=== PATIENT | female | born 1975 | race Caucasian/White ===

== ENCOUNTER → 2016-04-04 | Emergency (ER) | payer OTHER ==
[~2016-04-04] VITALS: Ht 157.5 cm; Wt 81.0 kg
[~2016-04-04] MED LIST: FIORICET PO; KETOROLAC 30 MG INJ IM STA
[2016-04-04 22:32] VITALS: Ht 157.5 cm; Wt 81.0 kg
--- NOTE | 2016-04-05 01:10 | ERD ---
ER Documentation Chief Complaint Date/Time DATE: 04/05/16 TIME: 01:05 Chief Complaint headache x 3 months HPI Patient is a 40-year-old female with a past medical history of GERD who presents to the emergency department with a headache 3 months. Patient denies sudden onset. Patient states that she has a history of headaches. Patient states today her headache was worse. She states that her pain today was a 10 out of 10 this morning. After taking Excedrin two hours ago, her current headache is a 1 out of 10. Patient describes the pain to be "pulsating." Patient states that the pain is primarily in the occipital region and radiates down into her bilateral shoulders. Patient reported some nausea however denies any vomiting. Patient reports phonophobia but denies any photophobia. Denies any fever, chills, neck stiffness, back pain, chest pain or shortness of breath , abdominal pain, loss of consciousness. Patient denies any difficulty ambulating. ROS All systems reviewed and are negative except as per history of present illness. Medications Home Meds Active Scripts Acetamin/Butalbital/Caffeine* (Fioricet*) [id number] Tab, 1 TAB PO Q6H Y for PAIN, #15 TAB Prov:RADHA BURCH PA-C 04/05/16 Allergies Allergies: Coded Allergies: No Known Allergy (Unverified , 04/04/16) PMhx/Soc Medical and Surgical Hx: pt denies Medical Hx, pt denies Surgical Hx History of Surgery: Yes (C section) Anesthesia Reaction: No Hx Neurological Disorder: No Hx Respiratory Disorders: No Hx Cardiac Disorders: No Hx Psychiatric Problems: No Hx Miscellaneous Medical Probl: Yes (H pylori) Hx Alcohol Use: No Hx Substance Use: No Hx Tobacco Use: No Smoking Status: Never smoker Physical Exam Vitals Vital Signs Date Time Temp Pulse Resp B/P Pulse Ox O2 Delivery O2 Flow Rate FiO2 04/04/16 22:32 98.3 86 20 124/73 99 Physical Exam GENERAL: Well-developed, well-nourished female. Appears in no acute distress. Speaking in full sentences HEAD: Normocephalic, atraumatic. No deformities or ecchymosis. EYE: Pupils equal, round, and reactive to light. EOMs intact. No conjunctival erythema. No scleral icterus. No eye discharge. ENT: External ear without any masses or tenderness. Auditory canals clear bilaterally. TM visualized bilaterally, non-erythematous, non-bulging. Nasal mucosa pink with no discharge. Oropharynx is pink without any tonsillar erythema or exudates. No uvula deviation. No kissing tonsils. NECK: Supple. No lymphadenopathy or thyromegaly. No meningismus. Full range of motion of the neck. LUNG: Clear to auscultation bilaterally. No rhonchi, wheezing, rales or coarse breath sounds. HEART: Regular rate and rhythm. No murmurs, rubs or gallops. BACK: No midline tenderness. Tender to palpation of bilateral trapezius muscles. EXTREMITIES: Equal pulses bilaterally. No peripheral clubbing, cyanosis or edema. No unilateral leg swelling. NEUROLOGIC: Alert and oriented x3, cooperative. Mood and affect appropriate to situation. Cranial nerves II through XII are grossly intact. Normal speech. Motor exam: 5/5 strength in upper and lower extremities. Sensory exam: Sensation intact to light touch on all four extremities. Cerebellar function exam: No dysmetria on otkgwj-nk-nive test. Steady gait. No pronator drift. SKIN: Normal color. Warm and dry. No rashes or lesions. Results 24 hrs Current Medications Medications (Trade) Dose Ordered Sig/Ru Route PRN Reason Start Time Stop Time Status Last Admin Dose Admin Ketorolac Tromethamine (Toradol) 30 mg ONCE STAT IM 04/05/16 01:03 04/05/16 01:04 DC 04/05/16 01:13 Procedures/MDM ED COURSE: The patient was stable throughout ED course. I kept the patient and/or family informed of laboratory and diagnostic imaging results throughout the ED course. MEDICATIONS GIVEN: Toradol IM Patient tolerated medication well with no adverse reactions. Patient reported improvement in pain. MEDICAL DECISION MAKING: This is a 40-year-old female who presents with a headache 3 months. Patient reports nausea, phonophobia with headaches. Vital signs were reviewed. Patient was afebrile. Patient is not hypoxic. Patient stated that current headache was similar to headaches in the past. Patient denied any fevers, neck stiffness, visual changes or LOC. Full neurological exam was normal. Patient was given Toradol here in the ED, which did improve the pain. Given these findings, the patients presentation is most consistent with migraine vs tension headaches. I have a much lower clinical concern for intracranial hemorrhage, CVA, meningitis , encephalitis, temporal arteritis, benign intracranial hypertension, intracranial mass, glaucoma, preeclampsia, sinusitis. PRESCRIPTIONS: Fioricet DISCHARGE: At this time, patient is stable for discharge and outpatient management. I have encouraged the patient to hydrate well. I have instructed the patient to follow- up with his/her primary care physician in 1-2 days. If symptoms persist, patient may need to see a specialist for further examinations and testing. I have instructed the patient to promptly return to the ER at any time for any new or worsening symptoms including increased increased pain, fever, nausea, vomiting, numbness, neck stiffness, visual changes, weakness or LOC. The patient and/or family expressed understanding of and agreement with this plan. All questions were answered. Home care instructions were provided. Departure Diagnosis: Primary Impression: Headache Headache type: unspecified Headache chronicity pattern: chronic headache Intractability: not intractable Qualified Code: R51 - Chronic nonintractable headache, unspecified headache type Condition: Stable Patient Instructions: Self-Care for Headaches Referrals: [facility] YOU HAVE RECEIVED A MEDICAL SCREENING EXAM AND THE RESULTS INDICATE THAT YOU DO NOT HAVE A CONDITION THAT REQUIRES URGENT TREATMENT IN THE EMERGENCY DEPARTMENT. FURTHER EVALUATION AND TREATMENT OF YOUR CONDITION CAN WAIT UNTIL YOU ARE SEEN IN YOUR DOCTORS OFFICE WITHIN THE NEXT 1-2 DAYS. IT IS YOUR RESPONSIBILITY TO MAKE AN APPOINTMENT FOR FOLOW-UP CARE. IF YOU HAVE A PRIMARY DOCTOR --you should call your primary doctor and schedule an appointment IF YOU DO NOT HAVE A PRIMARY DOCTOR YOU CAN CALL OUR PHYSICIAN REFERRAL HOTLINE AT IF YOU CAN NOT AFFORD TO SEE A PHYSICIAN YOU CAN CHOSE FROM THE FOLLOWING [facility] CLINICS [facility] [address] [facility] [address] [facility]. [facility] [address] [facility] [address] [facility] [address] [facility]. [facility]. [address] [facility]. [facility] YOU HAVE RECEIVED A MEDICAL SCREENING EXAM AND THE RESULTS INDICATE THAT YOU DO NOT HAVE A CONDITION THAT REQUIRES URGENT TREATMENT IN THE EMERGENCY DEPARTMENT. FURTHER EVALUATION AND TREATMENT OF YOUR CONDITION CAN WAIT UNTIL YOU ARE SEEN IN YOUR DOCTORS OFFICE WITHIN THE NEXT 1-2 DAYS. IT IS YOUR RESPONSIBILITY TO MAKE AN APPOINTMENT FOR FOLOW-UP CARE. IF YOU HAVE A PRIMARY DOCTOR --you should call your primary doctor and schedule and appointment IF YOU DO NOT HAVE A PRIMARY DOCTOR YOU CAN CALL OUR PHYSICIAN REFERRAL HOTLINE AT . IF YOU CAN NOT AFFORD TO SEE A PHYSICIAN YOU CAN CHOSE FROM THE FOLLOWING [facility] INSTITUTIONS: [facility] [address] [place] [address] [facility] [address] [place] [address] [facility] [address] [place] [address] [facility] URGENT CARE/SPECIALTIES Additional Instructions: Hydrated. Rest. Take medication as needed for headaches. Call your primary care doctor TOMORROW for an appointment during the next 1-2 days.See the doctor sooner or return here if your condition worsens before your appointment time. RADHA BURCH PA-C Apr 05, 2016 01:10
== END | disposition home or self-care (01) ==
LOC: FTE 22:19
DX: R51 Headache (principal)
CPT/HCPCS: 96372; Z7502; J1885